=== PATIENT | male | born 1980 | race Caucasian/White ===

== ENCOUNTER 2019-03-08 14:47 | Emergency (ER) | payer OTHER, MEDICAID ==
[~2019-03-08] VITALS: Ht 172.7 cm; Wt 59.1 kg
[2019-03-08] MEDS ORDERED: bacitracin 15gm ointment TP ONE (15:25)
[2019-03-08] MEDS ORDERED: acetaminophen 325mg tablet PO ONE (15:25)
[2019-03-08] MEDS ORDERED: TETanus/Pertussis (Acell)/Diphther VAC/PF (Tdap-Adult) 0.5ml syringe IMVAC ONE (15:25)
[2019-03-08] MEDS ORDERED: LIDOcaine 1% w/EPI 1:200,000 injection 10mL vial IM ONE ×2 (16:30→16:45)
[2019-03-08] MEDS ORDERED: LIDOcaine 1% W/epiNEPHrine 1:200,000 10ml vial IJ ONE ×4 (16:35→16:50)
[2019-03-08] MEDS ORDERED: AMOX-422 PO (17:26)
[2019-03-08] MEDS ORDERED: HYDR-3965 PO (17:26)
[2019-03-08] MEDS ORDERED: ONDA4TAB6 PO (17:26)
[2019-03-08] MEDS ORDERED: amox tr/potassium clavulanate 875/125mg TAB PO ONE (17:30)
[2019-03-08 17:36] VITALS: BP 134/74
== END 2019-03-08 18:02 ==
LOC: ER 14:48
DX: S06.0X0A Concussion without loss of consciousness, initial encounter (principal); S41.011A Laceration without foreign body of right shoulder, initial encounter; S01.01XA Laceration without foreign body of scalp, initial encounter; S51.811A Laceration without foreign body of right forearm, initial encounter; S61.511A Laceration without foreign body of right wrist, initial encounter; F12.90 Cannabis use, unspecified, uncomplicated; F15.90 Other stimulant use, unspecified, uncomplicated; Z88.6 Allergy status to analgesic agent; Z79.2 Long term (current) use of antibiotics; Z79.899 Other long term (current) drug therapy; W54.0XXA Bitten by dog, initial encounter; Y93.89 Activity, other specified; Y92.89 Other specified places as the place of occurrence of the external cause; Y99.8 Other external cause status
CPT/HCPCS: 12002; 70450; 73060; 73090; 90471; 99284

== ENCOUNTER 2024-11-10 12:27 | Emergency (ER) | payer MEDICAID ==
[~2024-11-10] VITALS: Ht 172.7 cm; Wt 67.7 kg
[~2024-11-10 12:27] MED LIST: ONDA4TAB6 PO
[2024-11-10 12:33] VITALS: TEMP 97.8
--- NOTE | 2024-11-10 12:57 | Physician Documentation ---
History of Present Illness ~ Chief Complaint: Urinary Retention Stated Complaint: CONSTIPATION Time Seen by MD: 12:48 Primary Medical Doctor: NONE Source: patient Mode of Arrival: Ambulatory Exam Limitations: no limitations HPI Chief Complaint: Referred from [facility] Caveat: None Independent Historians: None History of Present Illness: Patient is a 44-year-old man referred from [facility]. Patient was to have a urine drug screen yesterday. He had urinated just prior and had difficulty urinating. The nurse there told him that if he is only urinating once a day he should be seen in the ER for evaluation. That has why he is here today. Patient denies any difficulty a your and eating on a daily basis. No blood in the urine. No dysuria urgency or frequency. No fever. Patient was kicked out of [facility] home because I could not pee on command". Review of systems: All systems were reviewed and are negative except for what is indicated in the history of present illness. Past Medical History: None Past Surgical History: None Social History: On parole, patient is going back to [facility] for urine drug screen today and he will be accepted. Denies alcohol use, denies drug use Medications: Reviewed as documented Nursing Notes Allergies: Reviewed as documented in Nursing Notes Medication Reconciliation Allergies: Coded Allergies: iodine (Verified Allergy, Unknown, 11/10/24) Scheduled PRN Ondansetron Hcl (Zofran), 15 TAB PO Q6H PRN for nausea/vomiting Past Medical History Past Medical History: No Pertinent History Past Surgical History: no surgical history Alcohol Use: Occasionally Drug Use: marijuana, methamphetamine Lives with: Spouse Lives In: Home Review of Systems All Other Systems at this time: Reviewed and Negative ROS Patient denies any other acute symptoms other than above. All other systems are negative Physical Exam Vital Signs: RN Vital Signs have been reviewed: Yes, Temperature: 97.8, Source: Temporal, Heart Rate: 91, Respiratory Rate: 18, BP: 128/82, Pulse Oximetry: 98, Weight: 67.650 Pulse Oximetry Reflects: adequate oxygenation Physical Exam General Appearance: No distress Neck: supple, normal ROM, trachea midline Pulmonary: No respiratory distress, CTA, BS equal Cardiac: RRR, no murmur, rub or gallop, GI: nondistended, soft, nontender, normal bowel sounds, no guarding, no rebound Neuro: AAOx3, speech is clear, no focal motor weakness Psych: normal affect, good eye contact, no apparent hallucination, normal speech Progress Results/Orders Results/Orders Vital Signs 11/10/24 12:33 Temp 97.8 Pulse 91 Resp 18 B/P (MAP) 128/82 Pulse Ox 98 Medical Decision Making Findings Differential diagnosis includes but is not limited to: Medical screening exam, urinary retention Emergency department course/medical decision-making: Patient has no suspected pathology of his urinary tract system. There was no evidence of urinary retention. The fact is the patient could not urinate on demand after he had just urinated. Patient does not require any imaging. Bladder scan shows that he is able to empty his bladder. Patient is stable for discharge. Patient is reassured. Departure Time of Disposition: 13:00 Disposition: 01 HOME / SELF CARE / HOMELESS Impression: Primary Impression: Encounter for medical screening examination Condition: Stable Discharge Instructions: Medical Screening Exam Education Educated: Patient Educated regarding: diagnosis, treatment Signature Scribe Signature: No scribe Attestation: No scribe JACKIE DILLON MD Nov 10, 2024 12:57
[2024-11-10 13:24] VITALS: BP 104/77; PULSE 82; RESP 18; O2SAT 98
== END 2024-11-10 13:25 | disposition home or self-care (01) ==
LOC: ER 12:28
DX: R30.0 Dysuria (principal); F12.90 Cannabis use, unspecified, uncomplicated; F15.90 Other stimulant use, unspecified, uncomplicated; Z88.8 Allergy status to other drugs, medicaments and biological substances; Z72.89 Other problems related to lifestyle
CPT/HCPCS: 51798; 99284